=== PATIENT | female | born 1980 | race Caucasian/White ===

== ENCOUNTER 2017-01-04 05:56 | Day surgery (SDC) | payer BC ==
[2017-01-03 17:15] VITALS: BMI 23.0
[~2017-01-04] VITALS: Ht 162.6 cm; Wt 58.5 kg
[2017-01-04] VITALS (15 sets, daily range): BP systolic 102–118; BP diastolic 58–78; PULSE 54–71; RESP 15–26; Ht 162.6 cm; Wt 58.5 kg
[~2017-01-04 05:56] MED LIST: [UNRECOGNIZED DRUG - CODE]
[2017-01-04] MEDS ORDERED: [UNRECOGNIZED DRUG - CODE] PO (06:30)
[2017-01-04] MEDS ORDERED: BUPIVACAINE 0.5%/EPI (SDV) 30 ML INJ ONE (06:51)
[2017-01-04] MEDS ORDERED: ROCURONIUM 50 MG INJ ONE (07:00)
[2017-01-04] MEDS ORDERED: MIDAZOLAM 1 MG/ML 2 ML INJ ONE (07:00)
[2017-01-04] MEDS ORDERED: ONDANSETRON 4 MG INJ ONE (07:00)
[2017-01-04] MEDS ORDERED: FENTAnyl 50 MCG/ML VIAL ONE (07:00)
[2017-01-04] MEDS ORDERED: LIDOCAINE 2% (SDV) 5 ML INJ ONE (07:00)
[2017-01-04] MEDS ORDERED: ACETAMINOPHEN 1000MG/100ML IV 100 ML ONE (07:00)
[2017-01-04] MEDS ORDERED: PROPOFOL 20 ML ONE (07:00)
[2017-01-04] MEDS ORDERED: FAMOTIDINE 20 MG INJ ONE (07:01)
[2017-01-04] MEDS ORDERED: DEXAMETHASONE 4 MG/ML 1 ML INJ ONE (07:01)
[2017-01-04] MEDS ORDERED: METOCLOPRAMIDE 10 MG INJ ONE (07:01)
[2017-01-04] MEDS ORDERED: BUPIVACAINE 0.5%/EPI (SDV) 30 ML INJ INJ ONE (07:30)
[2017-01-04] MEDS ORDERED: CEFAZOLIN 1 GM INJ ONE (07:46)
[2017-01-04] MEDS ORDERED: SUGAMMADEX SODIUM 200 MG/2 ML VIAL IV ONE (08:15)
--- NOTE | 2017-01-04 08:31 | OPR ---
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 Normal uterus. CONSENT: Please see my preop H and P consent in the office for the consent process. DESCRIPTION OF PROCEDURE: She was taken to operating room and general anesthesia was induced. She was prepped and draped in the usual sterile fashion in dorsal lithotomy position. Surgical time-out was done. Anterior lip of the cervix was grasped using a single-tooth tenaculum, and a HUMI was inserted in normal fashion. The tenaculum was removed. There was no bleeding from the cervix. The patient already had a Live catheter as well. Gloves were changed. A 5 mm incision was developed inside the umbilicus. A blunt trocar was inserted in the normal fashion. Intraperitoneal position was confirmed using the laparoscope. Pneumoperitoneum was obtained. The patient was placed in Trendelenburg position. A second trocar was inserted under direct visualization of the laparoscope at the pubic hairline in the midline. A 5 cm mid ampullary region of the right tube was coagulated. Complete desiccation of the entire diameter of tube was visualized. The middle of the coagulated portion was cut. There was no bleeding. Same procedure was done on the contralateral side. All instruments removed under direct visualization of the laparoscope after pneumoperitoneum was released. There was no bleeding. Skin closed using 4-0 Monocryl. Then 10 mL 0.25% Marcaine with epinephrine was injected at the incision sites. HUMI was removed. There was no bleeding from the vagina. Patient tolerated the procedure well. JESSICA APPIAH MD Jan 04, 2017 08:31
[2017-01-04] MEDS ORDERED: DIPHENHYDRAMINE 50 MG INJ IV PRN (09:00)
[2017-01-04] MEDS ORDERED: METOCLOPRAMIDE 10 MG INJ IV PRN (09:00)
[2017-01-04] MEDS ORDERED: FENTAnyl 50 MCG/ML VIAL IV PRN ×3 (09:00)
[2017-01-04] MEDS ORDERED: MEPERIDINE 25 MG INJ IV PRN (09:00)
== END 2017-01-04 10:20 | disposition home or self-care (01) ==
LOC: SUR 05:56 → SDS 05:56 → SUR 10:20
PROVIDERS: ATTEND Specialist
DX: Z30.2 Encounter for sterilization (principal)
CPT/HCPCS: 58670; 84703; J0131; J0690; J1100; J2250; J2405; J2765; J3010; Z7512; Z7610